=== PATIENT | female | born 2000 | race Caucasian/White ===

== ENCOUNTER 2021-02-17 12:42 | Emergency (ER) | payer OTHER, SELFPAY ==
[2021-02-17 14:00] VITALS: BP 113/64; PULSE 85; RESP 16; TEMP 36.2; O2SAT 99; BMI 20.1
--- NOTE | 2021-02-17 14:03 | ED.GENADULT ---
HPI - General Adult General Chief complaint: General Medical Stated complaint: SORE THROAT Time Seen by Provider: 02/17/21 14:03 Source: patient Limitations: no limitations History of Present Illness HPI narrative: Patient complaining of worsening sore throat over the past 2 days. Patient has a history of past throat infections. Patient states while in the waiting room she felt that she may had an abscess on the left side that ruptured. Patient states she felt some bad taste in her mouth and spit up some blood-tinged sputum. Patient has no trouble swallowing at this time no shortness of breath fever chills at this time. Symptoms are mild to moderate. Patient has followed up with ENT in the past. Related Data Previous Rx's Medication Instructions Recorded amoxicillin 500 mg PO TID #30 cap 02/17/21 Allergies Allergy/AdvReac Type Severity Reaction Status Date / Time No Known Allergies Allergy Verified 02/17/21 14:08 Review of Systems Constitutional: Constitutional: Denies chills, Denies fever(s), Denies headache(s) and Denies weight loss ENT: Denies headache(s) and Reports sore throat Cardiovascular: Cardiovascular: Denies chest pain and Denies dyspnea Respiratory: Respiratory: Denies cough and Denies dyspnea Gastrointestinal: Gastrointestinal: Denies nausea and Denies vomiting Musculoskeletal: Musculoskeletal: Reports no additional musculoskeletal complaints Neurologic: Denies headache(s) Hematologic/Lymphatic: Hematologic/Lymphatic: Reports no additional hematologic/lymphatic complaints PMF Past Medical History Attestation statement: The following information was validated with the patient. Medical History (Updated 02/17/21 @ 14:08 by Jose Donald) No known health problems Social History Social History Advance Directives: No Advance Directives Information Provided: No Patient : No Physical Exam Vital Signs: Vital Signs: Last Vital Signs Temp 97.2 F 02/17/21 14:00 Pulse 85 02/17/21 14:00 Resp 16 02/17/21 14:00 BP 113/64 02/17/21 14:00 Pulse Ox 99 02/17/21 14:00 Body Mass Index 20.1 vital signs have been reviewed as normal and appeared to be correct. Blood pressure normal. Heart rate normal. Respiration rate normal. Temperature normal. Oxygen saturation normal. Appearance: Alert. Oriented X3. No acute distress. Head: Normal external exam. Normocephalic. Atraumatic. No Lui signs noted. No raccoon eyes noted Eyes: PERRLA. EOMI. Conjunctiva and sclera normal. Eyelids normal. ENT: Left tonsil pillar erythematous exudate and no evidence of peritonsillar abscess no airway compromise. No trismus noted. No drooling noted. No muffled voice noted. Neck: Soft full range of motion, no cervical adenopathy palpated CVS: Heart regular rate and rhythm no murmurs and rubs Respiratory: Breath sounds are clear to auscultation bilaterally. No accessory muscle use noted. Skin: Skin warm and dry. Normal skin color. Normal skin turgor. No rashes/lesions/lacerations noted. Extremities: No lower extremity edema. Extremities exhibit normal range of motion. Extremities nontender. Neuro: Oriented X 3. No motor deficit. No sensory deficit. Reflexes normal. Course Course Course Narrative: Differential diagnosis Exudate of pharyngitis Peritonsillar abscess URI Viral syndrome Clinical sense of a consistent with acute pharyngitis will treat at this time recommend follow-up ENT Discharge Plan Discharge Clinical Impression: Pharyngitis Patient Disposition: Home, Self-Care Instructions: Pharyngitis (ED) Additional Instructions: Warm salt water gargles Follow-up with ENT Prescriptions: New amoxicillin 500 mg capsule 500 mg PO TID Qty: 30 RF: 0 Referrals: Jaylen Burns [Physician] - 2 days
== END 2021-02-17 14:43 | disposition home or self-care (01) ==
LOC: HO.ED 14:19
PROVIDERS: Emergency Provider Emergency Medicine
DX: J02.9 Acute pharyngitis, unspecified (principal)
CPT/HCPCS: 99283